=== PATIENT | female | born 1985 | race Two or more races ===

== ENCOUNTER 2021-01-30 19:15 | Emergency (ER) | payer OTHER ==
[~2021-01-30] VITALS: Ht 167.6 cm; Wt 54.4 kg
[2021-01-30] MEDS ORDERED: MEDI-MECLIZINE25 MG PO (22:40)
== END 2021-01-30 22:50 | disposition home or self-care (01) ==
LOC: ER 19:15
DX: R42 Dizziness and giddiness (principal)